=== PATIENT | female | born 1970 | race African-American/Black ===

== ENCOUNTER 2018-12-07 08:45 | Day surgery (SDC) | payer OTHER ==
[2018-12-06 11:56] VITALS: BMI 27.4
[~2018-12-07 08:45] MED LIST: BUPIVACAINE HCL/PF (5 MG/ML) 30 ML VIAL IJ ONE
[2018-12-07] MEDS ORDERED: DEXAMETHASONE SOD PHOSPHATE 4 MG/1 ML VIAL ONE (08:57)
[2018-12-07] MEDS ORDERED: LIDOCAINE HCL/PF 2% SDV 5ML VIAL ONE (08:57)
[2018-12-07] MEDS ORDERED: MIDAZOLAM HCL 2 MG/2 ML SINGLE DOSE VIAL ONE (08:57)
[2018-12-07] MEDS ORDERED: oxyCODONE HCL 5 MG TABLET PO PRN ×2 (10:35)
[2018-12-07] MEDS ORDERED: ONDANSETRON 4 MG/2 ML VIAL IVPUSH PRN (10:35)
[2018-12-07] MEDS ORDERED: LACTATED RINGERS SOLUTION 1,000 ML IV SCH (10:45)
[2018-12-07] MEDS ORDERED: BUPIVACAINE HCL/PF 0.5% (5MG/ML) 10 ML VIAL ONE (10:51)
[2018-12-07] MEDS ORDERED: ceFAZolin SODIUM 1 GM VIAL IVPB ONE (11:01)
[2018-12-07] MEDS ORDERED: PROPOFOL 20 ML ONE (11:04)
[2018-12-07] MEDS ORDERED: SODIUM CHLORIDE 0.9% P/F 10 ML VIAL IJ ONE (11:07)
[2018-12-07] MEDS ORDERED: ceFAZolin SODIUM 1 GM VIAL ONE (11:07)
[2018-12-07] MEDS ORDERED: BUPIVACAINE HCL/PF (5 MG/ML) 30 ML VIAL IJ ONE (11:45)
[2018-12-07] MEDS ORDERED: MEPERIDINE HCL 25 MG/ML VIAL ONE (12:17)
--- NOTE | 2018-12-07 12:23 | OP ---
Operative Note - Note: Operative Date: 12/07/18 Pre-Operative Diagnosis: Bilateral Carpal Tunnel Syndrome Operation: Left Carpal Tunnel Release, Epineurectomy, Internal Neurolysis Post-Operative Diagnosis: Same as Pre-op Surgeon: Josse Astudillo Anesthesia: General Specimens Removed: Epineurium Operative Report Dictated: Yes
--- NOTE | 2018-12-07 13:53 | OP ---
DATE OF OPERATION: 12/07/2018 PREOPERATIVE DIAGNOSIS: Bilateral carpal tunnel syndrome. POSTOPERATIVE DIAGNOSIS: Bilateral carpal tunnel syndrome. PROCEDURE PERFORMED: Left carpal tunnel release with epineurectomy and internal neurolysis. SURGEON: Josse Astudillo MD ANESTHESIA: General via LMA. PROCEDURE: The patient was on the operating room table in the supine position with left arm on an arm table and the area of the hand was prepped and draped in the usual sterile fashion. A left upper arm tourniquet was fastened prior to prep and was now elevated for 2 minutes prior to inflation to 250 mmHg. An incision was designed with a marking pen the distal wrist crease obliquely and extending distally up the central palm to approximately the ring finger ray. The incision was made with a number-15 scalpel blade as designed. Dissection was carried down through subcutaneous using electrocautery. The palmar fascia was identified and the motor branch of the median nerve was identified distally. Protecting the motor branch of the median nerve below, the palmar fascia was incised proximally. A De Jesus scissors was used to complete the incision of the palmar fascia. Once the carpal tunnel was completely released, the median nerve was examined and found to be dusky in color. An epineurectomy was performed. Using the loupe magnification, an internal neurolysis was performed the fascicles of the median nerve. The wound was then irrigated with saline solution and closed using number 5-0 nylon suture in continuous horizontal mattress fashion. Sterile dressings were applied consisting of Xeroform gauze and Kerlix and wrapped with a Kerlix wrap. A fiberglass splint was fashioned with the wrist in a slightly extended position and secured with a 4-inch Justin bandage. The patient was then awoken from anesthesia without any difficulty and taken from the operating room to the recovery room in satisfactory condition having tolerated the procedure well. Ld GAINES/[id number]
[2018-12-07 15:06] VITALS: TEMP 97.6
[2018-12-07 16:53] VITALS: BP 131/71; PULSE 75
--- NOTE | 2018-12-10 13:05 | PATH ---
Surgical Pathology Report Patient Name: KENNETH CORMIER [facility]. Rec. #: [id number] /Age/Gender: 1970 (Age: 48) / F Account: [id number] Location: [facility] SURGICAL Taken: 12/07/2018 Received: 12/07/2018 Reported: 12/10/2018 Physicians: Josse Astudillo M.D. Specimen(s) Received EPINEURIUM LEFT HAND Clinical History Carpal tunnel syndrome left hand, multiple face tags Final Diagnosis EPINEURIUM, LEFT HAND, EXCISION: DENSE FIBROTIC AND ADIPOSE TISSUE WITH FIBROSIS. Electronically Signed Bernabe Grover M.D. Gross Description Received in formalin labeled "epineurium left hand," is a 2.5 cm in length x 0.1 cm diameter pagan, cylindrical portion of soft tissue. The specimen is submitted in toto in one cassette. /12/07/201812/07/2018
== END 2018-12-07 15:50 | disposition home or self-care (01) ==
LOC: JASU-SURG 08:45
PROVIDERS: ATTEND Plastic Surgery
PROC: 01N50ZZ Release Median Nerve, Open Approach (ICD-10-PCS; principal; 2018-12-07 10:00)
PROC: 01N50ZZ Release Median Nerve, Open Approach (ICD-10-PCS; 2018-12-07 10:00)
DX: G56.03 Carpal tunnel syndrome, bilateral upper limbs (principal)
CPT/HCPCS: 84703; 88304-TC; 94760

== ENCOUNTER 2021-04-15 19:59 | Inpatient (IN) | payer OTHER ==
[2021-04-15 20:12] VITALS: BMI 27.4
[2021-04-15 21:27] LABS: BASO % 0.4 % (0-2.0); EOS % 1.6 % (0-4.5); HEMATOCRIT 34.2 % (32.4-45.2); HEMOGLOBIN 11.5 GM/dL (10.7-15.3); LYMPH % 33.7 % (8-40); MCH 29.7 pg (25.7-33.7); MCHC 33.8 g/dl (32.0-36.0); MEAN CELL VOLUME 87.9 fl (80-96); MONO % 10.8 % (3.8-10.2); NEUT % 53.5 % (42.8-82.8); PLATELET COUNT 220 10^3/uL (134-434); RBC 3.89 M/mm3 (3.60-5.2); RDW 13.4 % (11.6-15.6); WHITE BLOOD COUNT 5.6 K/mm3 (4.0-10.0)
[2021-04-15] MEDS ORDERED: DEXAMETHASONE SOD PHOSPHATE 10 MG/1 ML VIAL IVPUSH ONE (21:33)
[2021-04-15] MEDS ORDERED: ACETAMINOPHEN 1000 MG/100 ML VIAL (NON FORMULARY) IVPB ONE (21:35)
[2021-04-15] MEDS ORDERED: METOCLOPRAMIDE HCL INJECTION 10 MG/2 ML VIAL IVPB ONE (21:35)
[2021-04-15 21:38] LABS: INR 1.04 (0.83-1.09); PROTHROMBIN TIME (PATIENT) 12.6 SEC (9.7-13.0)
[2021-04-15 21:41] LABS: ACTIVATED PTT 27.2 SECONDS (25.2-36.5)
[2021-04-15 21:43] LABS: CHLORIDE 104 mmol/L (98-107); SODIUM 138 mmol/L (136-145)
[2021-04-15] MEDS ORDERED: DEXAMETHASONE SOD PHOSPHATE 10 MG/1 ML VIAL ONE (21:52)
[2021-04-15] MEDS ORDERED: ACETAMINOPHEN INJECTION 100 ML IVPB ONE (21:53)
[2021-04-15] MEDS ORDERED: METOCLOPRAMIDE HCL INJECTION 10 MG/2 ML VIAL ONE (21:53)
[2021-04-15 22:06] LABS: ALK PHOS 49 U/L (45-117); ANION GAP 5 MMOL/L (8-16); BILIRUBIN,TOTAL 0.5 mg/dL (0.2-1); BLOOD UREA NITROGEN 7.5 mg/dL (7-18); CALCIUM 8.8 mg/dL (8.5-10.1); CO2 29 mmol/L (21-32); CREATININE 0.7 mg/dL (0.55-1.3); GLUCOSE,RANDOM 81 mg/dL (74-106); MAGNESIUM 2.2 mg/dL (1.8-2.4); SGOT/AST 19 U/L (15-37); SGPT/ALT 19 U/L (13-61); TOT PROT 7.8 g/dl (6.4-8.2)
[2021-04-15] MEDS ORDERED: SODIUM CHLORIDE 1,000 ML IV SCH (22:30)
[2021-04-15] MEDS ORDERED: LABETALOL HCL 5 MG/1 ML (100MG/20 ML VIAL) IVPUSH PRN ×2 (22:33→22:35)
[2021-04-15] MEDS ORDERED: ONDANSETRON 4 MG/2 ML VIAL IVPUSH PRN (23:03)
[2021-04-15] MEDS ORDERED: ACETAMINOPHEN 500 MG TABLET (FP) PO PRN (23:03)
[2021-04-16 06:22] VITALS: TEMP 98.2
[2021-04-16 07:45] LABS: BASO % 0.2 % (0-2.0); HEMOGLOBIN 11.5 GM/dL (10.7-15.3); LYMPH % 13.9 % (8-40); MCH 29.9 pg (25.7-33.7); MCHC 33.8 g/dl (32.0-36.0); MEAN CELL VOLUME 88.4 fl (80-96); MEAN PLT VOLUME 8.9 fl (7.5-11.1); MONO % 1.2 % (3.8-10.2); NEUT % 84.7 % (42.8-82.8); PLATELET COUNT 215 10^3/uL (134-434); RBC 3.85 M/mm3 (3.60-5.2); RDW 13.4 % (11.6-15.6); WHITE BLOOD COUNT 6.1 K/mm3 (4.0-10.0)
[2021-04-16 07:51] LABS: INR 1.11 (0.83-1.09); PROTHROMBIN TIME (PATIENT) 13.4 SEC (9.7-13.0)
[2021-04-16 07:53] LABS: ACTIVATED PTT 32.8 SECONDS (25.2-36.5)
[2021-04-16 08:10] LABS: CALCIUM 8.1 mg/dL (8.5-10.1)
[2021-04-16 08:11] LABS: ALBUMIN 3.4 g/dl (3.4-5.0); MAGNESIUM 1.9 mg/dL (1.8-2.4)
[2021-04-16 08:14] LABS: BILIRUBIN,TOTAL 0.4 mg/dL (0.2-1); CREATININE 0.6 mg/dL (0.55-1.3); PHOSPHOROUS 3.1 mg/dL (2.5-4.9)
[2021-04-16 08:15] LABS: TOT PROT 6.8 g/dl (6.4-8.2)
[2021-04-16] MEDS ORDERED: MUPIROCIN 2% TOPICAL OINTMENT FOR DECOLONIZATION NS SCH (10:00)
[2021-04-16 10:03] VITALS: BP 127/76; PULSE 79
[2021-04-16] MEDS ORDERED: CHLORHEXIDINE GLUCONATE 4% CLEANSER FOR DECOLONIZATION TP SCH (22:00)
== END 2021-04-16 12:21 | disposition home or self-care (01) | DRG 83 ==
LOC: JER 19:59 → JERBED 21:20 → JICU 23:40
PROVIDERS: ADMIT Internal Medicine; ATTEND Internal Medicine
DX: S06.5X9A Traumatic subdural hemorrhage with loss of consciousness of unspecified duration, initial encounter (principal); D68.0 Von Willebrand disease; G43.909 Migraine, unspecified, not intractable, without status migrainosus; K21.9 Gastro-esophageal reflux disease without esophagitis; G56.00 Carpal tunnel syndrome, unspecified upper limb; I25.2 Old myocardial infarction; E78.00 Pure hypercholesterolemia, unspecified; I10 Essential (primary) hypertension; E78.5 Hyperlipidemia, unspecified; X58.XXXA Exposure to other specified factors, initial encounter; Y92.89 Other specified places as the place of occurrence of the external cause
CPT/HCPCS: 36415; 71045-TC-FY; 80053; 82550; 83036; 83735; 84100; 84484; 85025; 85246; 85610; 85730; 86850; 86900; 86901; 93005; 93010; 99291; C9803; J0131; J1100; U0003; U0005

== ENCOUNTER 2022-10-20 04:20 | Day surgery (SDC) | payer OTHER ==
[2022-10-15 16:28] VITALS: BMI 27.9
[2022-10-20] MEDS ORDERED: ONDANSETRON 4 MG/2 ML VIAL IVPUSH PRN (09:48)
[2022-10-20] MEDS ORDERED: oxyCODONE HCL 5 MG TABLET PO PRN (09:48)
[2022-10-20] MEDS ORDERED: LACTATED RINGERS SOLUTION 1,000 ML IV SCH (10:00)
[2022-10-20] MEDS ORDERED: MIDAZOLAM HCL 2 MG/2 ML SINGLE DOSE VIAL ONE (10:11)
[2022-10-20] MEDS ORDERED: PROPOFOL 60 ML ONE (10:27)
[2022-10-20] MEDS ORDERED: ceFAZolin SODIUM 1 GM VIAL IVPB ONE (10:35)
[2022-10-20] MEDS ORDERED: ONDANSETRON 4 MG/2 ML VIAL ONE (14:15)
[2022-10-20 15:49] VITALS: BP 144/80; PULSE 74; RESP 16; TEMP 97.8
== END 2022-10-20 15:10 | disposition home or self-care (01) ==
LOC: JASU-SURG 04:20
PROVIDERS: ATTEND Orthopaedic Surgery
PROC: 0LM14ZZ Reattachment of Right Shoulder Tendon, Percutaneous Endoscopic Approach (ICD-10-PCS; 2022-10-20)
PROC: 0RQJ4ZZ Repair Right Shoulder Joint, Percutaneous Endoscopic Approach (ICD-10-PCS; 2022-10-20)
PROC: 0PB94ZZ Excision of Right Clavicle, Percutaneous Endoscopic Approach (ICD-10-PCS; principal; 2022-10-20 09:30)
DX: M75.41 Impingement syndrome of right shoulder (principal); M19.011 Primary osteoarthritis, right shoulder; M24.111 Other articular cartilage disorders, right shoulder
CPT/HCPCS: 81025; 94760; C1713

== ENCOUNTER 2023-12-19 03:51 | Inpatient (IN) | payer OTHER ==
[2023-12-14 10:42] VITALS: BMI 26.6
[2023-12-19] MEDS ORDERED: IBUPROFEN 400 MG TABLET (FP) PO PRN (06:44)
[2023-12-19] MEDS ORDERED: oxyCODONE HCL 5 MG TABLET PO PRN ×2 (06:44→09:50)
[2023-12-19] MEDS ORDERED: ACETAMINOPHEN 325 MG TABLET (FP) PO PRN (06:44)
[2023-12-19] MEDS ORDERED: ACETAMINOPHEN INJECTION 100 ML IVPB ONE ×3 (07:31→21:33)
[2023-12-19] MEDS ORDERED: PROPOFOL 40 ML ONE (07:39)
[2023-12-19] MEDS ORDERED: LIDOCAINE HCL 2% 100 MG/5 ML DISP.SYRIN ONE (07:39)
[2023-12-19] MEDS ORDERED: ceFAZolin SODIUM 1 GM VIAL ONE ×2 (07:40→14:44)
[2023-12-19] MEDS ORDERED: MIDAZOLAM HCL 2 MG/2 ML SINGLE DOSE VIAL ONE ×2 (07:40→14:43)
[2023-12-19] MEDS ORDERED: ONDANSETRON 4 MG/2 ML VIAL ONE ×2 (07:41→15:09)
[2023-12-19] MEDS ORDERED: FENTANYL CITRATE/PF 50 MCG/ML VIAL ONE ×7 (07:41→17:12)
[2023-12-19] MEDS ORDERED: DEXAMETHASONE SOD PHOSPHATE 4 MG/1 ML VIAL ONE (07:58)
[2023-12-19] MEDS ORDERED: SUCCINYLCHOLINE CHLORIDE 200 MG/10 ML SYRINGE ONE ×2 (08:06→14:19)
[2023-12-19] MEDS: ceFAZolin SODIUM 1 GM VIAL IVPB ONE ×2 (08:11→14:44)
[2023-12-19] MEDS ORDERED: TRANEXAMIC ACID 1000 MG/10 ML VIAL ONE (09:17)
[2023-12-19] MEDS ORDERED: ONDANSETRON 4 MG/2 ML VIAL IVPUSH PRN ×2 (09:50→16:37)
[2023-12-19] MEDS ORDERED: LACTATED RINGERS SOLUTION 1,000 ML IV SCH (10:00)
[2023-12-19 13:26] LABS: HEMATOCRIT 16.5 % (32.4-45.2); MCH 30.1 pg (25.7-33.7); MCHC 33.3 g/dl (32.0-36.0); MEAN CELL VOLUME 90.2 fl (80-96); MEAN PLT VOLUME 8.5 fl (7.5-11.1); PLATELET COUNT 107 10^3/uL (134-434); RBC 1.83 M/mm3 (3.60-5.2); RDW 13.6 % (11.6-15.6); WHITE BLOOD COUNT 4.4 K/mm3 (4.0-10.0)
[2023-12-19 13:31] LABS: HEMOGLOBIN 5.5 GM/dL (10.7-15.3)
[2023-12-19 14:11] LABS: ANISOCYTOSIS 0; MACROCYTOSIS 0
[2023-12-19 14:18] LABS: HEMATOCRIT 25.1 % (32.4-45.2); HEMOGLOBIN 8.4 GM/dL (10.7-15.3); MCH 29.5 pg (25.7-33.7); MCHC 33.4 g/dl (32.0-36.0); MEAN CELL VOLUME 88.3 fl (80-96); MEAN PLT VOLUME 8.4 fl (7.5-11.1); PLATELET COUNT 157 10^3/uL (134-434); RBC 2.84 M/mm3 (3.60-5.2); RDW 14.2 % (11.6-15.6); WHITE BLOOD COUNT 8.4 K/mm3 (4.0-10.0)
[2023-12-19] MEDS ORDERED: ROCURONIUM BROMIDE 50 MG/5 ML SYRINGE ONE (14:18)
[2023-12-19] MEDS ORDERED: ETOMIDATE 20 MG/10 ML VIAL IVPUSH ONE (14:19)
[2023-12-19] MEDS ORDERED: LIDOCAINE HCL/PF 2% SDV 5ML VIAL ONE (14:19)
[2023-12-19 14:30] LABS: INR 1.19 (0.83-1.09); PROTHROMBIN TIME (PATIENT) 13.8 SEC (9.7-13.0)
[2023-12-19 14:33] LABS: ACTIVATED PTT 26.2 SECONDS (25.2-36.5)
[2023-12-19] MEDS ORDERED: SODIUM CHLORIDE 0.9% P/F 10 ML VIAL IJ ONE (14:44)
[2023-12-19 15:02] LABS: POTASSIUM 3.6 mmol/L (3.5-5.1)
[2023-12-19 15:03] LABS: CALCIUM 7.7 mg/dL (8.5-10.1)
[2023-12-19 15:05] LABS: BLOOD UREA NITROGEN 10.7 mg/dL (7-18)
[2023-12-19 15:07] LABS: CREATININE 0.7 mg/dL (0.55-1.3)
[2023-12-19] MEDS ORDERED: METOCLOPRAMIDE HCL INJECTION 10 MG/2 ML VIAL ONE (15:09)
[2023-12-19 15:10] LABS: ALBUMIN 2.9 g/dl (3.4-5.0); BILIRUBIN,TOTAL 0.4 mg/dL (0.2-1); TOT PROT 5.3 g/dl (6.4-8.2)
[2023-12-19] MEDS ORDERED: SUGAMMADEX SODIUM 200 MG/2 ML VIAL ONE (16:08)
[2023-12-19] MEDS ORDERED: ACETAMINOPHEN 500 MG TABLET (FP) PO PRN (16:12)
[2023-12-19] MEDS ORDERED: PROMETHAZINE HCL 25 MG/1 ML VIAL IVPB PRN ×2 (16:37)
[2023-12-19] MEDS ORDERED: DEXAMETHASONE SOD PHOSPHATE 4 MG/1 ML VIAL IVPUSH PRN (16:37)
[2023-12-19] MEDS: ACETAMINOPHEN 1000 MG/100 ML BAG IVPB ONE (17:30)
[2023-12-19] MEDS ORDERED: HYDROmorphone *PCA* 10MG/50ML DISP.SYRIN ONE (17:43)
[2023-12-19] MEDS: HYDROmorphone *PCA* 10MG/50ML DISP.SYRIN PCA SCH (17:46)
[2023-12-19] MEDS: ONDANSETRON 4 MG/2 ML VIAL IVPUSH PRN (19:59)
[2023-12-19] MEDS: ACETAMINOPHEN 1000 MG/100 ML BAG IVPB SCH (21:35)
[2023-12-19] MEDS: ATORVASTATIN CA 40 MG TABLET (FP) PO SCH (21:54)
[2023-12-19 23:01] LABS: POTASSIUM 3.8 mmol/L (3.5-5.1)
[2023-12-19 23:03] LABS: BLOOD UREA NITROGEN 10.9 mg/dL (7-18); CALCIUM 7.9 mg/dL (8.5-10.1)
[2023-12-19 23:06] LABS: CREATININE 0.7 mg/dL (0.55-1.3)
[2023-12-19 23:33] LABS: HEMATOCRIT 30.5 % (32.4-45.2); HEMOGLOBIN 10.1 GM/dL (10.7-15.3); MCH 28.6 pg (25.7-33.7); MCHC 33.1 g/dl (32.0-36.0); MEAN CELL VOLUME 86.4 fl (80-96); PLATELET COUNT 140 10^3/uL (134-434); RBC 3.53 M/mm3 (3.60-5.2); RDW 15.3 % (11.6-15.6); WHITE BLOOD COUNT 15.3 K/mm3 (4.0-10.0)
[2023-12-19] MEDS: CEFAZOLIN SODIUM 2 GM in DEXTROSE 5%-WATER 100 ML IVPB SCH (23:35)
[2023-12-20] MEDS: ACETAMINOPHEN 500 MG TABLET (FP) PO SCH (00:05)
[2023-12-20] MEDS: LACTATED RINGERS SOLUTION 1,000 ML IV SCH (01:30)
[2023-12-20] MEDS: SIMETHICONE 80 MG TAB.CHEW (FP) PO PRN (02:04)
[2023-12-20 06:21] LABS: HEMATOCRIT 26.9 % (32.4-45.2); HEMOGLOBIN 9.1 GM/dL (10.7-15.3); MCH 29.1 pg (25.7-33.7); MCHC 33.9 g/dl (32.0-36.0); MEAN CELL VOLUME 85.7 fl (80-96); MEAN PLT VOLUME 8.3 fl (7.5-11.1); PLATELET COUNT 129 10^3/uL (134-434); RBC 3.14 M/mm3 (3.60-5.2); RDW 15.4 % (11.6-15.6); WHITE BLOOD COUNT 12.8 K/mm3 (4.0-10.0)
[2023-12-20] MEDS: ASPIRIN 81 MG CHEWABLE TABLETS PO SCH (10:00)
[2023-12-20] MEDS: LORATADINE 10 MG TABLET PO SCH (10:41)
[2023-12-20] MEDS: ENOXAPARIN NA (PORCINE) 40 MG/0.4 ML DISP.SYRIN SQ SCH (10:41)
[2023-12-20] MEDS ORDERED: ACETAMINOPHEN 500 MG TABLET (FP) PO PRN (10:55)
[2023-12-20] MEDS ORDERED: MAG HYDROX/AL HYDROX/SIMETH 30 ML UNIT-DOSE CUP PO ONE (13:00)
[2023-12-20] MEDS: ACETAMINOPHEN 1000 MG/100 ML BAG IVPB PRN (13:13)
[2023-12-20] MEDS: MAG HYDROX/AL HYDROX/SIMETH 30 ML UNIT-DOSE CUP PO ONE (13:25)
[2023-12-20] MEDS: metoPROLOL SUCCINATE 25 MG TAB.SR.24H (FP) PO SCH (13:26)
[2023-12-20] MEDS: CEFAZOLIN 1 GM in DEXTROSE 5%-WATER - 50 ML IVPB SCH (15:56)
[2023-12-20] MEDS: FAMOTIDINE 20 MG TABLET PO SCH (21:37)
[2023-12-21] MEDS: ZOLPIDEM TARTRATE 5 MG TABLET PO STA (04:43)
[2023-12-21] MEDS: ACETAMINOPHEN 500 MG TABLET (FP) PO PRN (04:45)
[2023-12-21 07:51] LABS: BASO % 0.3 % (0-2.0); EOS % 0.6 % (0-4.5); HEMATOCRIT 23.3 % (32.4-45.2); HEMOGLOBIN 7.8 GM/dL (10.7-15.3); LYMPH % 28.4 % (8-40); MCH 29.2 pg (25.7-33.7); MCHC 33.6 g/dl (32.0-36.0); MEAN CELL VOLUME 86.9 fl (80-96); MEAN PLT VOLUME 8.6 fl (7.5-11.1); MONO % 12.3 % (3.8-10.2); NEUT % 58.4 % (42.8-82.8); PLATELET COUNT 111 10^3/uL (134-434); RBC 2.68 M/mm3 (3.60-5.2); RDW 15.6 % (11.6-15.6); WHITE BLOOD COUNT 8.3 K/mm3 (4.0-10.0)
[2023-12-21] MEDS: BISACODYL 10 MG SUPP.RECT PR ONE ×2 (09:57→15:30)
[2023-12-21] MEDS: FERROUS SO4 325 MG TABLET (FP) PO SCH (12:14)
[2023-12-21] MEDS ORDERED: SODIUM CHLORIDE 1,000 ML IV STA (20:13)
[2023-12-21 20:40] LABS: BASO % 0.2 % (0-2.0); LYMPH % 33.5 % (8-40); MCH 29.1 pg (25.7-33.7); MCHC 33.4 g/dl (32.0-36.0); MEAN CELL VOLUME 87.2 fl (80-96); MEAN PLT VOLUME 8.2 fl (7.5-11.1); NEUT % 53.3 % (42.8-82.8); PLATELET COUNT 135 10^3/uL (134-434); RBC 2.75 M/mm3 (3.60-5.2); RDW 15.3 % (11.6-15.6); WHITE BLOOD COUNT 9.4 K/mm3 (4.0-10.0)
[2023-12-21] MEDS: ACETAMINOPHEN 1000 MG/100 ML BAG IVPB PRN (20:56)
[2023-12-21] MEDS: SODIUM CHLORIDE 1,000 ML IV STA (20:57)
[2023-12-21 21:06] LABS: INR 1.06 (0.83-1.09); PROTHROMBIN TIME (PATIENT) 12.3 SEC (9.7-13.0)
[2023-12-21 21:09] LABS: ACTIVATED PTT 31.8 SECONDS (25.2-36.5)
[2023-12-21] MEDS: SIMETHICONE 40 MG/0.6 ML BOTTLE PO PRN (21:10)
[2023-12-21] MEDS: HYDROmorphone HCl 2 MG/ML VIAL IVPB ONE (21:11)
[2023-12-21 21:22] LABS: ALBUMIN 3.3 g/dl (3.4-5.0); BILIRUBIN,TOTAL 0.4 mg/dL (0.2-1); BLOOD UREA NITROGEN 7.8 mg/dL (7-18); CALCIUM 8.7 mg/dL (8.5-10.1); CREATININE 0.7 mg/dL (0.55-1.3); MAGNESIUM 1.9 mg/dL (1.8-2.4); PHOSPHOROUS 2.5 mg/dL (2.5-4.9); POTASSIUM 3.6 mmol/L (3.5-5.1); TOT PROT 5.9 g/dl (6.4-8.2)
[2023-12-22] MEDS: SODIUM CHLORIDE 1,000 ML IV SCH (03:10)
[2023-12-22] MEDS: HYDROmorphone HCl 2 MG/ML VIAL IVPB PRN (04:19)
[2023-12-22] MEDS: BISACODYL 10 MG SUPP.RECT PR ONE (06:13)
[2023-12-22 06:40] LABS: BASO % 0.2 % (0-2.0); HEMATOCRIT 25.1 % (32.4-45.2); HEMOGLOBIN 8.5 GM/dL (10.7-15.3); LYMPH % 25.6 % (8-40); MCH 29.8 pg (25.7-33.7); MEAN CELL VOLUME 87.5 fl (80-96); MEAN PLT VOLUME 8.8 fl (7.5-11.1); MONO % 12.1 % (3.8-10.2); NEUT % 61.1 % (42.8-82.8); PLATELET COUNT 123 10^3/uL (134-434); RBC 2.87 M/mm3 (3.60-5.2); RDW 14.7 % (11.6-15.6); WHITE BLOOD COUNT 8.9 K/mm3 (4.0-10.0)
[2023-12-22 06:56] LABS: POTASSIUM 3.9 mmol/L (3.5-5.1)
[2023-12-22 06:59] LABS: ALBUMIN 3.2 g/dl (3.4-5.0); BLOOD UREA NITROGEN 8.2 mg/dL (7-18); CALCIUM 8.2 mg/dL (8.5-10.1); MAGNESIUM 1.9 mg/dL (1.8-2.4)
[2023-12-22 07:02] LABS: CREATININE 0.6 mg/dL (0.55-1.3); PHOSPHOROUS 3.3 mg/dL (2.5-4.9)
[2023-12-22 07:04] LABS: BILIRUBIN,TOTAL 0.6 mg/dL (0.2-1); TOT PROT 5.7 g/dl (6.4-8.2)
[2023-12-22] MEDS ORDERED: ONDANSETRON 4 MG/2 ML VIAL ONE (08:28)
[2023-12-22] MEDS ORDERED: LIDOCAINE HCL/PF 2% SDV 5ML VIAL ONE (08:28)
[2023-12-22] MEDS ORDERED: DEXAMETHASONE SOD PHOSPHATE 4 MG/1 ML VIAL ONE (08:28)
[2023-12-22] MEDS ORDERED: ceFAZolin SODIUM 1 GM VIAL ONE ×2 (08:28→09:15)
[2023-12-22] MEDS ORDERED: SODIUM CHLORIDE 0.9% P/F 10 ML VIAL IJ ONE (08:28)
[2023-12-22] MEDS ORDERED: PHENYLEPHRINE HCL 10 MG/1 ML SINGLE DOSE VIAL ONE (08:31)
[2023-12-22] MEDS ORDERED: PROPOFOL 20 ML ONE (08:45)
[2023-12-22] MEDS ORDERED: FENTANYL CITRATE/PF 50 MCG/ML VIAL ONE (08:46)
[2023-12-22] MEDS ORDERED: SUCCINYLCHOLINE CHLORIDE 200 MG/10 ML SYRINGE ONE (09:05)
[2023-12-22] MEDS ORDERED: ROCURONIUM BROMIDE 50 MG/5 ML SYRINGE ONE (09:05)
[2023-12-22] MEDS ORDERED: MIDAZOLAM HCL 2 MG/2 ML SINGLE DOSE VIAL ONE (09:05)
[2023-12-22] MEDS: MINERAL OIL ENEMA 133 ML ENEMA RC ONE (09:11)
[2023-12-22] MEDS ORDERED: ETOMIDATE 20 MG/10 ML VIAL IVPUSH ONE (09:13)
[2023-12-22] MEDS: ceFAZolin SODIUM 1 GM VIAL IVPB ONE (09:15)
[2023-12-22] MEDS ORDERED: HYDROmorphone HCl 2 MG/ML VIAL ONE (09:32)
[2023-12-22] MEDS ORDERED: ACETAMINOPHEN INJECTION 100 ML IVPB ONE (09:39)
[2023-12-22] MEDS: MICROFIBRILLAR COLLAGEN 1 GM EACH TP ONE (09:43)
[2023-12-22] MEDS ORDERED: SUGAMMADEX SODIUM 200 MG/2 ML VIAL ONE (09:58)
[2023-12-22] MEDS ORDERED: LACTATED RINGERS SOLUTION 1,000 ML IV SCH (10:15)
[2023-12-22] MEDS ORDERED: HYDROmorphone HCl 2 MG/ML VIAL IVPB PRN (11:16)
[2023-12-22] MEDS ORDERED: ONDANSETRON 4 MG/2 ML VIAL IVPUSH PRN (11:28)
[2023-12-22] MEDS ORDERED: DEXAMETHASONE SOD PHOSPHATE 4 MG/1 ML VIAL IVPUSH PRN (11:28)
[2023-12-22] MEDS: LACTATED RINGERS SOLUTION 1,000 ML IV SCH (11:36)
[2023-12-22] MEDS: MAG HYDROX/AL HYDROX/SIMETH 30 ML UNIT-DOSE CUP PO ONE (16:09)
[2023-12-22] MEDS: FERROUS SO4 325 MG TABLET (FP) PO SCH (16:10)
[2023-12-22] MEDS: ACETAMINOPHEN 1000 MG/100 ML BAG IVPB SCH (16:10)
[2023-12-22 17:04] LABS: BASO % 0.1 % (0-2.0); HEMATOCRIT 30.1 % (32.4-45.2); HEMOGLOBIN 10.2 GM/dL (10.7-15.3); LYMPH % 7.3 % (8-40); MCH 28.9 pg (25.7-33.7); MCHC 33.8 g/dl (32.0-36.0); MEAN CELL VOLUME 85.8 fl (80-96); MEAN PLT VOLUME 9.2 fl (7.5-11.1); MONO % 3.7 % (3.8-10.2); NEUT % 88.9 % (42.8-82.8); PLATELET COUNT 111 10^3/uL (134-434); RBC 3.51 M/mm3 (3.60-5.2); RDW 15.5 % (11.6-15.6); WHITE BLOOD COUNT 8.3 K/mm3 (4.0-10.0)
[2023-12-22 17:17] LABS: POTASSIUM 3.9 mmol/L (3.5-5.1)
[2023-12-22 17:19] LABS: BLOOD UREA NITROGEN 9.6 mg/dL (7-18); CALCIUM 7.8 mg/dL (8.5-10.1)
[2023-12-22 17:22] LABS: CREATININE 0.6 mg/dL (0.55-1.3)
[2023-12-22] MEDS: CEFAZOLIN SODIUM 2 GM in DEXTROSE 5%-WATER 100 ML IVPB SCH (17:35)
[2023-12-22] MEDS ORDERED: CEFAZOLIN SODIUM 2 GM VIAL IVPB SCH (18:00)
[2023-12-22 22:11] LABS: INR 1.03 (0.83-1.09); PROTHROMBIN TIME (PATIENT) 11.6 SEC (9.7-13.0)
[2023-12-22 22:13] LABS: ACTIVATED PTT 31.5 SECONDS (25.2-36.5)
[2023-12-22] MEDS: TRANEXAMIC ACID 1000 MG/10 ML VIAL IVPB ONE (22:49)
[2023-12-22] MEDS: FAMOTIDINE 20 MG TABLET PO SCH (22:50)
[2023-12-22] MEDS: ATORVASTATIN CA 20 MG TABLET (FP) PO SCH (22:53)
[2023-12-22] MEDS: DEXTROSE 5%-NORMAL SALINE 1,000 ML IV SCH (22:54)
[2023-12-22] MEDS: ZOLPIDEM TARTRATE 5 MG TABLET PO ONE (23:00)
[2023-12-23 07:44] LABS: HEMATOCRIT 23.7 % (32.4-45.2); HEMOGLOBIN 8.2 GM/dL (10.7-15.3); MCH 29.5 pg (25.7-33.7); MCHC 34.5 g/dl (32.0-36.0); MEAN CELL VOLUME 85.5 fl (80-96); MEAN PLT VOLUME 8.7 fl (7.5-11.1); PLATELET COUNT 143 10^3/uL (134-434); RBC 2.77 M/mm3 (3.60-5.2); WHITE BLOOD COUNT 5.6 K/mm3 (4.0-10.0)
[2023-12-23 07:57] LABS: POTASSIUM 3.6 mmol/L (3.5-5.1)
[2023-12-23 08:01] LABS: CALCIUM 7.9 mg/dL (8.5-10.1)
[2023-12-23 08:02] LABS: BLOOD UREA NITROGEN 10.6 mg/dL (7-18)
[2023-12-23 08:05] LABS: CREATININE 0.5 mg/dL (0.55-1.3)
[2023-12-23] MEDS: POLYETHYLENE GLYCOL (HEALTHYLAX) 3350 17 GM PACKET PO SCH (09:36)
[2023-12-23] MEDS ORDERED: ASPIRIN 81 MG CHEWABLE TABLETS PO SCH (10:00)
[2023-12-23] MEDS ORDERED: metoPROLOL SUCCINATE 25 MG TAB.SR.24H (FP) PO SCH (10:00)
[2023-12-23] MEDS: LORATADINE 10 MG TABLET PO SCH (10:43)
[2023-12-23] MEDS: metoPROLOL SUCCINATE 25 MG TAB.SR.24H (FP) PO ONE (12:45)
[2023-12-23] MEDS: ACETAMINOPHEN 500 MG TABLET (FP) PO PRN (18:17)
[2023-12-23] MEDS: SIMETHICONE 40 MG/0.6 ML BOTTLE PO PRN (21:21)
[2023-12-24 07:56] VITALS: BP 132/68; PULSE 72; RESP 20; TEMP 98.1
[2023-12-24 08:28] LABS: BASO % 0.4 % (0-2.0); EOS % 3.5 % (0-4.5); HEMATOCRIT 29.2 % (32.4-45.2); HEMOGLOBIN 10.1 GM/dL (10.7-15.3); LYMPH % 27.6 % (8-40); MCH 29.6 pg (25.7-33.7); MCHC 34.5 g/dl (32.0-36.0); MEAN CELL VOLUME 85.8 fl (80-96); MEAN PLT VOLUME 7.5 fl (7.5-11.1); MONO % 15.4 % (3.8-10.2); NEUT % 53.1 % (42.8-82.8); PLATELET COUNT 212 10^3/uL (134-434); RDW 15.3 % (11.6-15.6); WHITE BLOOD COUNT 6.4 K/mm3 (4.0-10.0)
[2023-12-24] MEDS ORDERED: metoPROLOL SUCCINATE 25 MG TAB.SR.24H (FP) PO SCH (10:00)
== END 2023-12-24 10:35 | disposition home or self-care (01) | DRG 742 ==
LOC: JASU-SURG 03:51 → J2C 16:04 → J3W 19:56
PROVIDERS: ADMIT Obstetrics & Gynecology; ATTEND Obstetrics & Gynecology
PROC: 0UT90ZZ Resection of Uterus, Open Approach (ICD-10-PCS; 2023-12-19)
PROC: 0WQF0ZZ Repair Abdominal Wall, Open Approach (ICD-10-PCS; 2023-12-19)
PROC: 0WCJ0ZZ Extirpation of Matter from Pelvic Cavity, Open Approach (ICD-10-PCS; 2023-12-19)
PROC: 30233K1 Transfusion of Nonautologous Frozen Plasma into Peripheral Vein, Percutaneous Approach (ICD-10-PCS; 2023-12-19)
PROC: 30233N1 Transfusion of Nonautologous Red Blood Cells into Peripheral Vein, Percutaneous Approach (ICD-10-PCS; 2023-12-19)
PROC: 0UBC8ZZ Excision of Cervix, Via Natural or Artificial Opening Endoscopic (ICD-10-PCS; principal; 2023-12-19 07:30)
PROC: 0UT70ZZ Resection of Bilateral Fallopian Tubes, Open Approach (ICD-10-PCS; 2023-12-19 07:30)
PROC: 0UDB8ZZ Extraction of Endometrium, Via Natural or Artificial Opening Endoscopic (ICD-10-PCS; 2023-12-19 07:30)
PROC: 30233R1 Transfusion of Nonautologous Platelets into Peripheral Vein, Percutaneous Approach (ICD-10-PCS; 2023-12-23)
DX: N95.0 Postmenopausal bleeding (principal); D62 Acute posthemorrhagic anemia; N99.821 Postprocedural hemorrhage of a genitourinary system organ or structure following other procedure; D68.09 Other von Willebrand disease; S30.0XXA Contusion of lower back and pelvis, initial encounter; N88.8 Other specified noninflammatory disorders of cervix uteri; A63.0 Anogenital (venereal) warts; I11.9 Hypertensive heart disease without heart failure; K21.9 Gastro-esophageal reflux disease without esophagitis; D69.6 Thrombocytopenia, unspecified; R55 Syncope and collapse; W18.30XA Fall on same level, unspecified, initial encounter; Y92.230 Patient room in hospital as the place of occurrence of the external cause; Y99.9 Unspecified external cause status; I25.10 Atherosclerotic heart disease of native coronary artery without angina pectoris; Z95.5 Presence of coronary angioplasty implant and graft; Y83.8 Other surgical procedures as the cause of abnormal reaction of the patient, or of later complication, without mention of misadventure at the time of the procedure
CPT/HCPCS: 36415; 36430; 70450-TC; 74178-TC; 74190-TC-FY; 80048; 80053; 82962; 83735; 84100; 85025; 85027; 85291; 85384; 85610; 85670; 85730; 86850; 86900; 86901; 86922; 88305-TC; 88307-TC; 88341-TC; 88342-TC; 94010; 94760; J0131; P9012; P9017; P9034; P9037; P9038; P9058; Q9967